=== PATIENT | female | born 1970 | race Caucasian/White ===

== ENCOUNTER → 2017-02-27 | Outpatient (CLI) | payer OTHER ==
[~2017-02-27] MED LIST: ASPI81TA28 PO; CARV25TA2 PO; CHOL100010 PO; FLUO20CA20 PO; FLX10; FRS/80 PO; INSU100I2 SQ; INSUINJ4 SQ; LISI-461 PO; LPT10 PO; MELA3TAB25 PO; METF1000 PO; MONT1TAB3 PO; MULTTAB PO; POTA20TA16 PO; SPIR25TA PO
== END | disposition home or self-care (01) ==
LOC: C.PAPS 12:39
PROVIDERS: ATTEND Obstetrics & Gynecology
DX: Z12.4 Encounter for screening for malignant neoplasm of cervix (principal)

== ENCOUNTER → 2017-04-20 | Outpatient (CLI) | payer OTHER | END | disposition home or self-care (01) | LOC: C.PATHSPEC 15:50 | PROVIDERS: ATTEND Obstetrics & Gynecology | DX: L91.8 Other hypertrophic disorders of the skin (principal) ==

== ENCOUNTER → 2018-03-26 | Outpatient (CLI) | payer OTHER ==
[~2018-03-26] MED LIST changes: +POTA-639 PO; -POTA20TA16 PO
== END | disposition home or self-care (01) ==
LOC: C.PAPS 15:13
PROVIDERS: ATTEND Obstetrics & Gynecology
DX: Z12.4 Encounter for screening for malignant neoplasm of cervix (principal)